=== PATIENT | male | born 1965 | race Caucasian/White ===

== ENCOUNTER 2021-03-17 12:18 | Emergency (ER) | payer OTHER ==
--- NOTE | 2021-03-17 13:51 | EDM.PDOC ---
ED HPI GENERAL MEDICAL PROBLEM - General Chief Complaint: Respiratory Problem Stated Complaint: COVID POSITIVE Time Seen by Provider: 03/17/21 13:59 Source of Information: Reports: Patient History Limitations: Reports: No Limitations - History of Present Illness INITIAL COMMENTS - FREE TEXT/NARRATIVE: pt has had increased sob in the last 2 days. He was diagnosed with covid about 1 week ago, He has been coughing alot. He also has noted alot of heartburn For the last 4 days he has had very black tarry looking stools. Onset: Gradual Duration: Day(s): Location: Reports: Chest, Abdomen, Generalized Associated Symptoms: Reports: Loss of Appetite, Shortness of Breath - Related Data Allergies Allergy/AdvReac Type Severity Reaction Status Date / Time No Known Allergies Allergy Verified 03/17/21 12:40 Home Meds: Home Meds NK [No Known Home Meds] 03/17/21 [History] Past Medical History HEENT History: Reports: Impaired Vision - Infectious Disease History Infectious Disease History: Reports: Chicken Pox - Past Surgical History GI Surgical History: Reports: Hernia Repair/Other Social & Family History - Tobacco Use Tobacco Use Status *Q: Never Tobacco User - Caffeine Use Caffeine Use: Reports: Coffee, Tea - Recreational Drug Use Recreational Drug Use: No ED ROS GENERAL - Review of Systems Review Of Systems: See Below Constitutional: Reports: Weakness, Fatigue HEENT: Reports: No Symptoms Respiratory: Reports: Shortness of Breath, Cough Cardiovascular: Reports: No Symptoms Endocrine: Reports: No Symptoms GI/Abdominal: Reports: Abdominal Pain, Other (heartburn type symptoms) : Reports: No Symptoms Musculoskeletal: Reports: No Symptoms Skin: Reports: No Symptoms ED EXAM, GENERAL - Physical Exam Exam: See Below Free Text/Narrative:: pt arrived with increased sob. he has been coughing alot. He has known covid for 1 week. He also has noted black tary stools for 4-5 days. Exam Limited By: No Limitations General Appearance: Alert, Anxious, Other ( very sob with activit ) Ears: Normal TMs Nose: Normal Inspection Throat/Mouth: Normal Inspection Head: Atraumatic Neck: Normal Inspection Respiratory/Chest: Decreased Breath Sounds, Rhonchi Cardiovascular: Regular Rate, Rhythm GI/Abdominal: Soft, Non-Tender (Male) Exam: Deferred Rectal (Males) Exam: Other ( rectal exam revealed no masses but the stool appeared very dark and bloody. ) Back Exam: Normal Inspection Extremities: Normal Inspection Neurological: Alert, Oriented, Normal Cognition Course - Vital Signs Last Recorded V/S: Last Vital Signs Temp 36.5 C 03/17/21 12:34 Pulse 59 L 03/17/21 12:34 Resp 16 03/17/21 12:34 BP 139/88 03/17/21 18:58 Pulse Ox 96 03/17/21 18:58 - Orders/Labs/Meds Orders: Active Orders 24 hr Category Date Time Status Saline Lock Insert [OM.PC] Routine Oth 03/17/21 13:58 Ordered Labs: Laboratory Tests 03/17/21 03/17/21 03/17/21 Range/Units 14:12 14:12 16:35 WBC 4.4 L (4.5-11.0) K/uL RBC 4.20 L (4.30-5.90) M/uL Hgb 12.7 (12.0-15.0) g/dL Hct 36.5 L (40.0-54.0) % MCV 87 (80-98) fL MCH 30 (27-31) pg MCHC 35 (32-36) % Plt Count 168 (150-400) K/uL Neut % (Auto) 78 H (36-66) % Lymph % (Auto) 14 L (24-44) % [place] % (Auto) 8 H (2-6) % Eos % (Auto) 0 L (2-4) % Baso % (Auto) 0 (0-1) % PT 9.9 (9.5-12.0) sec INR 0.91 (0.80-1.20) Sodium 133 L (140-148) mmol/L Potassium 3.3 L (3.6-5.2) mmol/L Chloride 93 L (100-108) mmol/L Carbon Dioxide 33 H (21-32) mmol/L Anion Gap 10.3 (5.0-14.0) mmol/L BUN 15 (7-18) mg/dL Creatinine 0.9 (0.8-1.3) mg/dL Est Cr Clr Drug Dosing 73.76 mL/min Estimated GFR (MDRD) > 60 (>60) Glucose 116 H (74-106) mg/dL Calcium 8.0 L (8.5-10.1) mg/dL Total Bilirubin 0.5 (0.2-1.0) mg/dL AST 145 H (15-37) U/L ALT 127 H (12-78) U/L Alkaline Phosphatase 82 (46-116) U/L Total Protein 6.5 (6.4-8.2) g/dL Albumin 2.6 L (3.4-5.0) g/dL Globulin 3.9 H (2.3-3.5) g/dL Albumin/Globulin Ratio 0.7 L (1.2-2.2) Blood Type Gel Antibody Screen 03/17/21 Range/Units 16:35 WBC (4.5-11.0) K/uL RBC (4.30-5.90) M/uL Hgb (12.0-15.0) g/dL Hct (40.0-54.0) % MCV (80-98) fL MCH (27-31) pg MCHC (32-36) % Plt Count (150-400) K/uL Neut % (Auto) (36-66) % Lymph % (Auto) (24-44) % Cory[place] % (Auto) (2-6) % Eos % (Auto) (2-4) % Baso % (Auto) (0-1) % PT (9.5-12.0) sec INR (0.80-1.20) Sodium (140-148) mmol/L Potassium (3.6-5.2) mmol/L Chloride (100-108) mmol/L Carbon Dioxide (21-32) mmol/L Anion Gap (5.0-14.0) mmol/L BUN (7-18) mg/dL Creatinine (0.8-1.3) mg/dL Est Cr Clr Drug Dosing mL/min Estimated GFR (MDRD) (>60) Glucose (74-106) mg/dL Calcium (8.5-10.1) mg/dL Total Bilirubin (0.2-1.0) mg/dL AST (15-37) U/L ALT (12-78) U/L Alkaline Phosphatase (46-116) U/L Total Protein (6.4-8.2) g/dL Albumin (3.4-5.0) g/dL Globulin (2.3-3.5) g/dL Albumin/Globulin Ratio (1.2-2.2) Blood Type A POSITIVE Gel Antibody Screen Negative Meds: Medications Discontinued Medications Generic Name Dose Route Start Last Admin Trade Name Laureano PRN Reason Stop Dose Admin Sodium Chloride 1,000 mls @ 300 mls/hr 03/17/21 16:00 03/17/21 16:00 Normal Saline IV 300 mls/hr ASDIRECTED ALDEN Administration Pantoprazole Sodium 80 mg 03/17/21 14:00 03/17/21 14:40 Pantoprazole 40 Mg Vial IVPUSH 80 mg .BOLUS ALDEN Administration Sodium Chloride 10 ml 03/17/21 13:58 03/17/21 14:40 Sodium Chloride 0.9% 10 Ml Syringe FLUSH 10 ml ASDIRECTED PRN Administration Keep Vein Open - Re-Assessments/Exams Free Text/Narrative Re-Assessment/Exam: 03/17/21 16:41 pt did have o2 sats in the 86-87 range. pt responding to o2 at 2 liters. His stool did look very bloody. His hg is good [facility] 13. [facility] because of the [facility] bleed they are not willing to take him 03/17/21 17:38 Inr was done and found to be .91 nd type and screen is completed. There is no antibodies. Departure - Departure Time of Disposition: 16:44 Disposition: DC/Tfer to Acute Hospital 02 Condition: Fair Clinical Impression: Upper GI bleeding, COVID-19, Bilateral pneumonia - Discharge Information Referrals: PCP,None [Primary Care Provider] - Forms: ED Department Discharge Care Plan Goals: transfer to [facility]. Sepsis Event Note (ED) - Evaluation Sepsis Screening Result: No Definite Risk - My Orders Last 24 Hours: My Active Orders 03/17/21 13:58 Saline Lock Insert [OM.PC] Routine - Assessment/Plan Last 24 Hours: My Active Orders 03/17/21 13:58 Saline Lock Insert [OM.PC] Routine
[2021-03-17] MEDS ORDERED: Sodium Chloride 0.9% 10 ML Syringe FLUSH PRN (13:58)
[2021-03-17] MEDS ORDERED: Pantoprazole 40 MG Vial IVPUSH SCH (14:00)
--- NOTE | 2021-03-17 15:14 | CRLCR ---
INDICATION: [id number], COVID positive. TECHNIQUE: Chest 1 view. COMPARISON: None. FINDINGS: There are patchy opacities within the right mid and lower lung and left lower lung suspicious for pneumonia. No pleural effusion or pneumothorax. Normal heart size and pulmonary vascularity. Mild elevation of the right hemidiaphragm. Hypertrophic changes of the spine. IMPRESSION: Patchy opacities in the right mid and lower lung and left lower lung suspicious for pneumonia. Dictated by Chasity Vo MD @ 03/17/2021 3:12:[address] Chasity Vo @ Mar 17 2021 3:12PM
[2021-03-17] MEDS ORDERED: Sodium Chloride 0.9% 1,000 ML IV SCH (16:00)
== END 2021-03-17 19:00 ==
LOC: JP.ED 12:18
DX: U07.1 COVID-19 (principal); J12.82 Pneumonia due to coronavirus disease 2019; K92.2 Gastrointestinal hemorrhage, unspecified
CPT/HCPCS: 36415; 71045; 80053; 82272; 85025; 85610; 86850; 86900; 86901; 96374; 99285; 99285-25; C9113; J7030

== ENCOUNTER 2021-03-26 13:16 | Inpatient (IN) | payer OTHER ==
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
[2021-03-26] MEDS ORDERED: OLANZapine 10 MG Vial IM ONE (13:51)
--- NOTE | 2021-03-26 14:33 | CT ---
Head wo Cont CLINICAL HISTORY: AMS COMPARISON: None TECHNIQUE: Transverse scans were obtained from the base of the skull through the vertex without IV contrast on a multislice, multidetector CT scanner. Auto dosage reduction and iterative reconstruction techniques employed. FINDINGS: No focal abnormal parenchymal density is identified. There is no mass effect, hemorrhage, or extraaxial collection. The basal cisterns and sulci over the convexities are normal. The ventricles are normal. IMPRESSION: No acute intracranial findings
[2021-03-26] MEDS ORDERED: cefTRIAXone 1 GM in Sodium Chloride 0.9% 50 ML IV ONE (14:45)
[2021-03-26] MEDS ORDERED: Sodium Chloride 0.9% 10 ML Syringe FLUSH PRN ×2 (14:46→17:31)
[2021-03-26] MEDS ORDERED: Sodium Chloride 0.9% 1,000 ML IV SCH (15:00)
[2021-03-26] MEDS ORDERED: Midazolam 1 MG/ML 5 ML SDV IVPUSH ONE (15:27)
[2021-03-26] MEDS ORDERED: Midazolam 1 MG/ML 5 ML SDV ONE (15:29)
--- NOTE | 2021-03-26 16:53 | PCM.HP.2 ---
H&P History of Present Illness - General Date of Service: 03/26/21 Admit Problem/Dx: Admission Diagnosis/Problem Admission Diagnosis/Problem Psychosis Source of Information: Provider, RN Notes Reviewed History Limitations: Reports: Altered Mental Status (Psychosis) - History of Present Illness Initial Comments - Free Text/Narative: Mr. Lara is a 55-year-old gentleman who was admitted through the emergency department with psychosis and urinary tract infection. He was hospitalized last week in [place] with active COVID-19 infection. He was treated with remdesivir and Decadron. Discharge was approximately 5 days ago on oral Decadron. After discharge she was noted to be agitated and somewhat confused, Decadron was discontinued 2 days ago because of his symptoms. He was brought into the emergency department today because of significant agitation and confusion. He has been agitated in the emergency department and has received IM Zyprexa and ketamine. He is currently sedated and restrained, unable to provide meaningful history concerning recent symptoms or review of systems. On evaluation in the emergency department CT scan of the head was unremarkable. Urinalysis does show evidence of underlying infection. Blood culture, urine culture have been obtain ed and he is given a first dose of IV ceftriaxone. - Related Data Allergies/Adverse Reactions: Allergies Allergy/AdvReac Type Severity Reaction Status Date / Time No Known Allergies Allergy Verified 03/26/21 13:26 Home Medications: Home Meds Pantoprazole Sodium [Protonix] 40 mg PO BID 03/26/21 [History] Past Medical History HEENT History: Reports: Impaired Vision Respiratory History: Reports: Other (See Below) Other Respiratory History: Covid - Infectious Disease History Infectious Disease History: Reports: Chicken Pox, Other (See Below) - Past Surgical History GI Surgical History: Reports: Hernia Repair/Other Social & Family History - Tobacco Use Tobacco Use Status *Q: Unknown Ever Used Tobacco - Caffeine Use Caffeine Use: Reports: Other Caffeine Use Comment: ESPERANZA d/t pt's cognitive function H&P Review of Systems - Review of Systems: Review Of Systems: See Below General: Reports: ROS unobtainable (Sedation and lethargy) Exam - Exam Exam: See Below - Vital Signs Vital Signs: Last Vital Signs Temp 98.1 F 03/26/21 15:43 Pulse 62 03/26/21 16:03 Resp 14 03/26/21 16:03 BP 98/53 L 03/26/21 16:03 Pulse Ox 98 03/26/21 16:03 Weight: 160 lb - Exam Quality Assessment: DVT Prophylaxis General: Sedated, Lethargic HEENT: Conjunctiva Clear, Mucosa Moist & [place], Normal Nasal Septum, Posterior Pharynx Clear, Pupils Equal Neck: Supple, Trachea Midline, +2 Carotid Pulse wo Bruit Lungs: Clear to Auscultation, Normal Respiratory Effort Cardiovascular: Regular Rate, Regular Rhythm, Normal S1, Normal S2. No: Systolic Murmur, Diastolic Murmur GI/Abdominal Exam: Soft, Non-Tender, No Organomegaly, No Distention Extremities: Non-Tender, No Pedal Edema Skin: Warm, Dry, Intact Neuro Extensive - Mental Status: Other (Significant agitation and confusion prior to sedation) - Patient Data Lab Results Last 24 hrs: Laboratory Results - last 24 hr 03/26/21 03/26/21 03/26/21 Range/Units 13:32 13:32 13:32 WBC 10.9 (4.5-11.0) K/uL RBC 4.43 (4.30-5.90) M/uL Hgb 13.3 (12.0-15.0) g/dL Hct 39.2 L (40.0-54.0) % MCV 89 (80-98) fL MCH 30 (27-31) pg MCHC 34 (32-36) % Plt Count 306 (150-400) K/uL Neut % (Auto) 84.7 H (36-66) % Lymph % (Auto) 6.3 L (24-44) % [place] % (Auto) 8.8 H (2-6) % Eos % (Auto) 0.0 L (2-4) % Baso % (Auto) 0.2 (0-1) % PT 10.8 (9.5-12.0) sec INR 0.99 (0.80-1.20) Sodium 141 (140-148) mmol/L Potassium 3.3 L (3.6-5.2) mmol/L Chloride 100 (100-108) mmol/L Carbon Dioxide 23 (21-32) mmol/L Anion Gap 21.3 H (5.0-14.0) mmol/L BUN 18 (7-18) mg/dL Creatinine 1.1 (0.8-1.3) mg/dL Est Cr Clr Drug Dosing 60.35 mL/min Estimated GFR (MDRD) > 60 (>60) Glucose 201 H (74-106) mg/dL Lactic Acid (0.4-2.0) mmol/L Calcium 8.4 L (8.5-10.1) mg/dL Total Bilirubin 0.8 D (0.2-1.0) mg/dL AST 24 D (15-37) U/L ALT 82 H (12-78) U/L Alkaline Phosphatase 91 (46-116) U/L Ammonia (11-32) umol/L Total Protein 6.7 (6.4-8.2) g/dL Albumin 3.0 L (3.4-5.0) g/dL Globulin 3.7 H (2.3-3.5) g/dL Albumin/Globulin Ratio 0.8 L (1.2-2.2) Procalcitonin ng/mL Urine Color (YELLOW) Urine Appearance (CLEAR) Urine pH (5.0-8.0) Ur Specific [place] (1.008-1.030) Urine Protein (NEGATIVE) mg/dL Urine Glucose (UA) (NEGATIVE) mg/dL Urine Ketones (NEGATIVE) mg/dL Urine Occult Blood (NEGATIVE) Urine Nitrite (NEGATIVE) Urine Bilirubin (NEGATIVE) Urine Urobilinogen (0.2-1.0) EU/dL Ur Leukocyte Esterase (NEGATIVE) Urine RBC (0-5) Urine WBC (0-5) Ur Epithelial Cells Amorphous Sediment Urine Bacteria Urine Mucus Salicylates (2.0-20.0) mg/dL Urine Opiates Screen (NEGATIVE) Ur Oxycodone Screen (NEGATIVE) Urine Methadone Screen (NEGATIVE) Ur Propoxyphene Screen (NEGATIVE) Acetaminophen (10.0-30.0) ug/mL Ur Barbiturates Screen (NEGATIVE) Ur Tricyclics Screen (NEGATIVE) Ur Phencyclidine Scrn (NEGATIVE) Ur Amphetamine Screen (NEGATIVE) U Methamphetamines Scrn (NEGATIVE) Urine MDMA Screen (NEGATIVE) U Benzodiazepines Scrn (NEGATIVE) U Cocaine Metab Screen (NEGATIVE) U Marijuana (THC) Screen (NEGATIVE) Ethyl Alcohol mg/dL 03/26/21 03/26/21 03/26/21 Range/Units 13:32 13:32 13:46 WBC (4.5-11.0) K/uL RBC (4.30-5.90) M/uL Hgb (12.0-15.0) g/dL Hct (40.0-54.0) % MCV (80-98) fL MCH (27-31) pg MCHC (32-36) % Plt Count (150-400) K/uL Neut % (Auto) (36-66) % Lymph % (Auto) (24-44) % Boyle % (Auto) (2-6) % Eos % (Auto) (2-4) % Baso % (Auto) (0-1) % PT (9.5-12.0) sec INR (0.80-1.20) Sodium (140-148) mmol/L Potassium (3.6-5.2) mmol/L Chloride (100-108) mmol/L Carbon Dioxide (21-32) mmol/L Anion Gap (5.0-14.0) mmol/L BUN (7-18) mg/dL Creatinine (0.8-1.3) mg/dL Est Cr Clr Drug Dosing mL/min Estimated GFR (MDRD) (>60) Glucose (74-106) mg/dL Lactic Acid (0.4-2.0) mmol/L Calcium (8.5-10.1) mg/dL Total Bilirubin (0.2-1.0) mg/dL AST (15-37) U/L ALT (12-78) U/L Alkaline Phosphatase (46-116) U/L Ammonia 9 L (11-32) umol/L Total Protein (6.4-8.2) g/dL Albumin (3.4-5.0) g/dL Globulin (2.3-3.5) g/dL Albumin/Globulin Ratio (1.2-2.2) Procalcitonin ng/mL Urine Color Yellow (YELLOW) Urine Appearance Clear (CLEAR) Urine pH 6.0 (5.0-8.0) Ur Specific [place] >= 1.030 (1.008-1.030) Urine Protein 30 H (NEGATIVE) mg/dL Urine Glucose (UA) Negative (NEGATIVE) mg/dL Urine Ketones 15 H (NEGATIVE) mg/dL Urine Occult Blood Trace-intact H (NEGATIVE) Urine Nitrite Negative (NEGATIVE) Urine Bilirubin Negative (NEGATIVE) Urine Urobilinogen 0.2 (0.2-1.0) EU/dL Ur Leukocyte Esterase Small H (NEGATIVE) Urine RBC 5-10 H (0-5) Urine WBC Packed H (0-5) Ur Epithelial Cells Rare Amorphous Sediment Few Urine Bacteria Moderate Urine Mucus Few Salicylates (2.0-20.0) mg/dL Urine Opiates Screen (NEGATIVE) Ur Oxycodone Screen (NEGATIVE) Urine Methadone Screen (NEGATIVE) Ur Propoxyphene Screen (NEGATIVE) Acetaminophen (10.0-30.0) ug/mL Ur Barbiturates Screen (NEGATIVE) Ur Tricyclics Screen (NEGATIVE) Ur Phencyclidine Scrn (NEGATIVE) Ur Amphetamine Screen (NEGATIVE) U Methamphetamines Scrn (NEGATIVE) Urine MDMA Screen (NEGATIVE) U Benzodiazepines Scrn (NEGATIVE) U Cocaine Metab Screen (NEGATIVE) U Marijuana (THC) Screen (NEGATIVE) Ethyl Alcohol < 3 mg/dL 03/26/21 03/26/21 03/26/21 Range/Units 13:46 13:54 13:54 WBC (4.5-11.0) K/uL RBC (4.30-5.90) M/uL Hgb (12.0-15.0) g/dL Hct (40.0-54.0) % MCV (80-98) fL MCH (27-31) pg MCHC (32-36) % Plt Count (150-400) K/uL Neut % (Auto) (36-66) % Lymph % (Auto) (24-44) % Boyle % (Auto) (2-6) % Eos % (Auto) (2-4) % Baso % (Auto) (0-1) % PT (9.5-12.0) sec INR (0.80-1.20) Sodium (140-148) mmol/L Potassium (3.6-5.2) mmol/L Chloride (100-108) mmol/L Carbon Dioxide (21-32) mmol/L Anion Gap (5.0-14.0) mmol/L BUN (7-18) mg/dL Creatinine (0.8-1.3) mg/dL Est Cr Clr Drug Dosing mL/min Estimated GFR (MDRD) (>60) Glucose (74-106) mg/dL Lactic Acid (0.4-2.0) mmol/L Calcium (8.5-10.1) mg/dL Total Bilirubin (0.2-1.0) mg/dL AST (15-37) U/L ALT (12-78) U/L Alkaline Phosphatase (46-116) U/L Ammonia (11-32) umol/L Total Protein (6.4-8.2) g/dL Albumin (3.4-5.0) g/dL Globulin (2.3-3.5) g/dL Albumin/Globulin Ratio (1.2-2.2) Procalcitonin ng/mL Urine Color (YELLOW) Urine Appearance (CLEAR) Urine pH (5.0-8.0) Ur Specific [place] (1.008-1.030) Urine Protein (NEGATIVE) mg/dL Urine Glucose (UA) (NEGATIVE) mg/dL Urine Ketones (NEGATIVE) mg/dL Urine Occult Blood (NEGATIVE) Urine Nitrite (NEGATIVE) Urine Bilirubin (NEGATIVE) Urine Urobilinogen (0.2-1.0) EU/dL Ur Leukocyte Esterase (NEGATIVE) Urine RBC (0-5) Urine WBC (0-5) Ur Epithelial Cells Amorphous Sediment Urine Bacteria Urine Mucus Salicylates 0.3 L (2.0-20.0) mg/dL Urine Opiates Screen Negative (NEGATIVE) Ur Oxycodone Screen Negative (NEGATIVE) Urine Methadone Screen Negative (NEGATIVE) Ur Propoxyphene Screen Negative (NEGATIVE) Acetaminophen 0.0 L (10.0-30.0) ug/mL Ur Barbiturates Screen Negative (NEGATIVE) Ur Tricyclics Screen Negative (NEGATIVE) Ur Phencyclidine Scrn Negative (NEGATIVE) Ur Amphetamine Screen Negative (NEGATIVE) U Methamphetamines Scrn Negative (NEGATIVE) Urine MDMA Screen Negative (NEGATIVE) U Benzodiazepines Scrn Negative (NEGATIVE) U Cocaine Metab Screen Negative (NEGATIVE) U Marijuana (THC) Screen Negative (NEGATIVE) Ethyl Alcohol mg/dL 03/26/21 03/26/21 Range/Units 13:56 14:00 WBC (4.5-11.0) K/uL RBC (4.30-5.90) M/uL Hgb (12.0-15.0) g/dL Hct (40.0-54.0) % MCV (80-98) fL MCH (27-31) pg MCHC (32-36) % Plt Count (150-400) K/uL Neut % (Auto) (36-66) % Lymph % (Auto) (24-44) % Boy[place] % (Auto) (2-6) % Eos % (Auto) (2-4) % Baso % (Auto) (0-1) % PT (9.5-12.0) sec INR (0.80-1.20) Sodium (140-148) mmol/L Potassium (3.6-5.2) mmol/L Chloride (100-108) mmol/L Carbon Dioxide (21-32) mmol/L Anion Gap (5.0-14.0) mmol/L BUN (7-18) mg/dL Creatinine (0.8-1.3) mg/dL Est Cr Clr Drug Dosing mL/min Estimated GFR (MDRD) (>60) Glucose (74-106) mg/dL Lactic Acid 3.4 H (0.4-2.0) mmol/L Calcium (8.5-10.1) mg/dL Total Bilirubin (0.2-1.0) mg/dL AST (15-37) U/L ALT (12-78) U/L Alkaline Phosphatase (46-116) U/L Ammonia (11-32) umol/L Total Protein (6.4-8.2) g/dL Albumin (3.4-5.0) g/dL Globulin (2.3-3.5) g/dL Albumin/Globulin Ratio (1.2-2.2) Procalcitonin < 0.05 ng/mL Urine Color (YELLOW) Urine Appearance (CLEAR) Urine pH (5.0-8.0) Ur Specific [place] (1.008-1.030) Urine Protein (NEGATIVE) mg/dL Urine Glucose (UA) (NEGATIVE) mg/dL Urine Ketones (NEGATIVE) mg/dL Urine Occult Blood (NEGATIVE) Urine Nitrite (NEGATIVE) Urine Bilirubin (NEGATIVE) Urine Urobilinogen (0.2-1.0) EU/dL Ur Leukocyte Esterase (NEGATIVE) Urine RBC (0-5) Urine WBC (0-5) Ur Epithelial Cells Amorphous Sediment Urine Bacteria Urine Mucus Salicylates (2.0-20.0) mg/dL Urine Opiates Screen (NEGATIVE) Ur Oxycodone Screen (NEGATIVE) Urine Methadone Screen (NEGATIVE) Ur Propoxyphene Screen (NEGATIVE) Acetaminophen (10.0-30.0) ug/mL Ur Barbiturates Screen (NEGATIVE) Ur Tricyclics Screen (NEGATIVE) Ur Phencyclidine Scrn (NEGATIVE) Ur Amphetamine Screen (NEGATIVE) U Methamphetamines Scrn (NEGATIVE) Urine MDMA Screen (NEGATIVE) U Benzodiazepines Scrn (NEGATIVE) U Cocaine Metab Screen (NEGATIVE) U Marijuana (THC) Screen (NEGATIVE) Ethyl Alcohol mg/dL Result Diagrams: 03/26/21 13:32 03/26/21 13:32 Sepsis Event Note - Evaluation Sepsis Screening Result: Possible Severe Sepsis Risk - Focused Exam Vital Signs: Vital Signs Temp Pulse Resp BP Pulse Ox 03/26/21 16:03 62 14 98/53 L 98 03/26/21 15:43 98.1 F 20 100/58 L 99 03/26/21 15:33 105/63 03/26/21 15:27 141/66 H 03/26/21 15:22 64 14 120/76 98 03/26/21 14:56 19 112/70 98 03/26/21 14:42 16 104/55 L 98 03/26/21 14:26 159/88 H 03/26/21 14:00 20 149/86 H 90 L 03/26/21 13:19 97.8 F 102 H 24 H 184/96 H 95 *Q Meaningful Use (ADM) - VTE Risk Assess *Q Each Risk Factor Represents 1 Point: Age 41 - 59 years, Obesity ( BMI > 25 kg/m2) Total Score 1 Point Risk Factors: 2 Each Risk Factor Represents 2 Points: None Total Score 2 Point Risk Factors: 0 Each Risk Factor Represents 3 Points: None Total Score 3 Point Risk Factors: 0 Each Risk Factor Represents 5 Points: None Total Score 5 Point Risk Factors: 0 Venous Thromboembolism Risk Factor Score *Q: 2 Problem List Initiated/Reviewed/Updated: Yes Orders Last 24hrs: Active Orders 24 hr Category Date Time Status Patient Status Manage Transfer [TRANSFER] Routine ADT 03/26/21 16:46 Ordered Initiate/Renew Violent-Self Destructive Restraints >/= Care 03/26/21 13:30 Ordered 17yo Q4H Nrsg Assess: Viol-S.Dest Rest [RC] Q1H Care 03/26/21 13:22 Active Peripheral IV Care [RC] . DIRECTED Care 03/26/21 14:46 Active CULTURE BLOOD [] Urgent Lab 03/26/21 15:05 Received CULTURE BLOOD [BC] Urgent Lab 03/26/21 15:15 Received CULTURE URINE [RM] Urgent Lab 03/26/21 15:23 Received Sodium Chloride 0.9% [Normal Saline] 1,000 ml Med 03/26/21 15:00 Active IV ASDIRECTED Sodium Chloride 0.9% [Saline Flush] Med 03/26/21 14:46 Active 10 ml FLUSH ASDIRECTED PRN Blood Culture x2 Reflex Set [OM.PC] Urgent Oth 03/26/21 14:55 Ordered Peripheral IV Insertion Adult [OM.PC] Urgent Oth 03/26/21 14:45 Ordered Resuscitation Status Routine Resus Stat 03/26/21 16:48 Ordered Medication Orders Sodium Chloride (Normal Saline) 1,000 mls @ 500 mls/hr IV ASDIRECTED ALDEN Last Admin: 03/26/21 15:12 Dose: 500 mls/hr Documented by: ZAID Sodium Chloride (Sodium Chloride 0.9% 10 Ml Syringe) 10 ml FLUSH ASDIRECTED PRN PRN Reason: Keep Vein Open Last Admin: 03/26/21 15:23 Dose: 10 ml Documented by: ZAID Assessment/Plan Comment:: ASSESSMENT AND PLAN AGITATION AND CONFUSION-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 Recent therapy with Decadron and its relatively long half-life. No evidence of active PRACTICE ADVISOR infection at this time or other PRACTICE ADVISOR abnormality. He has been found to have evidence of urinary tract infection which may also be a contributing factor. -Monitor in ICU -Haldol IV as needed for management of agitation -Reassess labs in a.m. URINARY TRACT INFECTION-obvious evidence of infection noted on urinalysis -Urine and blood cultures pending -IV fluids for hydration -IV ceftriaxone, pending culture results RECENT COVID-19 INFECTION-no evidence of significant respiratory compromise MAINTENANCE ISSUES -DVT prophylaxis; SCUDs -GI prophylaxis; continue outpatient PPI therapy -Galeano catheter; not indicated -Nutrition; regular diet -Nicotine dependence; not required CODE STATUS-FULL CODE ADMISSION STATUS-patient will be admitted to inpatient status, expect at least a 2 night hospital stay for evaluation and management of problems as outlined above. At the time of this admission I do not reasonably expected evaluation and management of this problem will require more than a 96 hour hospital stay. DISPOSITION-anticipate discharge to home after the hospital stay. PRIMARY CARE PROVIDER-Chasity Camejo - Mortality Measure Prognosis:: Good
[2021-03-26] MEDS ORDERED: Ondansetron 4 MG/2 ML SDV IV PRN (17:31)
[2021-03-26] MEDS ORDERED: Polyethylene Glycol 3350 Powder 17 GM Packet PO PRN (17:31)
[2021-03-26] MEDS ORDERED: Acetaminophen 325 MG Tab PO PRN (17:31)
[2021-03-26] MEDS ORDERED: Haloperidol Lactate 5 MG/ML SDV IVPUSH PRN (17:31)
[2021-03-26] MEDS: Sodium Chloride 0.9% 1,000 ML IV SCH (18:03)
[2021-03-26] MEDS ORDERED: Sodium Chloride 0.9% 500 ML IV ONE (22:05)
[2021-03-26] MEDS: Pantoprazole 40 MG Tab.CR PO SCH (22:14)
[2021-03-27] MEDS ORDERED: Sodium Chloride 0.9% 500 ML IV ONE (02:40)
[2021-03-27] MEDS: Sodium Chloride 0.9% 1,000 ML IV SCH (03:10)
[2021-03-27] MEDS: Pantoprazole 40 MG Tab.CR PO SCH ×2 (08:10→17:18)
[2021-03-27] MEDS ORDERED: cefTRIAXone 1 GM in Sodium Chloride 0.9% 50 ML IV SCH (15:00)
--- NOTE | 2021-03-27 15:55 | PCM.PN ---
- General Info Date of Service: 03/27/21 Subjective Update: Mr. Lara has been fairly stable since admission, confusion and agitation have essentially resolved. Vital signs have been good and he has remained afebrile. Functional Status: Reports: Tolerating Diet, Ambulating, Urinating - Review of Systems General: Reports: No Symptoms Pulmonary: Reports: No Symptoms Cardiovascular: Reports: No Symptoms Gastrointestinal: Reports: No Symptoms Genitourinary: Reports: No Symptoms - Patient Data Vitals - Most Recent: Last Vital Signs Temp 98.4 F 03/27/21 14:00 Pulse 66 03/27/21 14:00 Resp 11 L 03/27/21 14:00 BP 96/56 L 03/27/21 14:00 Pulse Ox 96 03/27/21 14:00 Weight - Most Recent: 155 lb 15.985 oz I&O - Last 24 Hours: Intake & Output 03/27/21 03/27/21 03/27/21 06:59 14:59 22:59 Intake Total 2292 900 Output Total 700 950 Balance 1592 -50 Lab Results Last 24 Hours: Laboratory Results - last 24 hr 03/27/21 03/27/21 Range/Units 05:28 05:28 WBC 9.6 (4.5-11.0) K/uL RBC 3.62 L (4.30-5.90) M/uL Hgb 10.8 L D (12.0-15.0) g/dL Hct 33.1 L (40.0-54.0) % MCV 91 (80-98) fL MCH 30 (27-31) pg MCHC 33 (32-36) % Plt Count 220 (150-400) K/uL Neut % (Auto) 76.6 H (36-66) % Lymph % (Auto) 12.1 L (24-44) % [place] % (Auto) 11.3 H (2-6) % Eos % (Auto) 0.0 L (2-4) % Baso % (Auto) 0.0 (0-1) % Sodium 146 (140-148) mmol/L Potassium 3.8 (3.6-5.2) mmol/L Chloride 113 H (100-108) mmol/L Carbon Dioxide 26 (21-32) mmol/L Anion Gap 10.8 (5.0-14.0) mmol/L BUN 9 (7-18) mg/dL Creatinine 0.9 (0.8-1.3) mg/dL Est Cr Clr Drug Dosing 73.74 mL/min Estimated GFR (MDRD) > 60 (>60) Glucose 96 (74-106) mg/dL Calcium 7.4 L (8.5-10.1) mg/dL Ethan Results Last 24 Hours: Microbiology 03/26/21 15:15 Aerobic Blood Culture - Preliminary Blood - Arm, Right NO GROWTH AFTER 1 DAY Anaerobic Blood Culture - Preliminary NO GROWTH AFTER 1 DAY 03/26/21 15:05 Aerobic Blood Culture - Preliminary Blood - Arm, Left NO GROWTH AFTER 1 DAY Anaerobic Blood Culture - Preliminary NO GROWTH AFTER 1 DAY 03/26/21 15:23 Urine Culture - Preliminary Urine, Catheterized Med Orders - Current: Current Medications Acetaminophen (Acetaminophen 325 Mg Tab) 650 mg PO Q4H PRN PRN Reason: Pain (Mild 1-3)/fever Haloperidol Lactate (Haloperidol Lactate 5 Mg/Ml Sdv) 2 mg IVPUSH Q2H PRN PRN Reason: Agitation Last Admin: 03/26/21 19:38 Dose: 2 mg Documented by: Ceftriaxone Sodium 1 gm/ (Sodium Chloride) 50 mls @ 100 mls/hr IV Q24H AL[place] Last Admin: 03/27/21 15:02 Dose: 100 mls/hr Documented by: Lactobacillus Rhamnosus (Lactobacillus Rhamnosus Gg (Probiotic) Cap) 1 cap PO BID ALDEN Ondansetron HCl (Ondansetron 4 Mg/2 Ml Sdv) 4 mg IV Q4H PRN PRN Reason: Nausea/Vomiting Pantoprazole Sodium (Pantoprazole 40 Mg Tab.Cr) 40 mg PO [facility] Last Admin: 03/27/21 08:10 Dose: 40 mg Documented by: Polyethylene Glycol (Polyethylene Glycol 3350 Powder 17 Gm Packet) 17 gm PO DAILY PRN PRN Reason: Constipation Sodium Chloride (Sodium Chloride 0.9% 10 Ml Syringe) 10 ml FLUSH ASDIRECTED PRN PRN Reason: Keep Vein Open Discontinued Medications Ceftriaxone Sodium 1 gm/ (Sodium Chloride) 50 mls @ 100 mls/hr IV ONETIME ONE Stop: 03/26/21 15:14 Last Admin: 03/26/21 15:19 Dose: 100 mls/hr Documented by: Sodium Chloride (Normal Saline) 1,000 mls @ 500 mls/hr IV ASDIRECTED AL[place] Last Admin: 03/26/21 15:12 Dose: 500 mls/hr Documented by: Sodium Chloride (Normal Saline) 1,000 mls @ 125 mls/hr IV ASDIRECTED [place] Last Admin: 03/27/21 03:10 Dose: 125 mls/hr Documented by: Sodium Chloride (Normal Saline) 500 mls @ 500 mls/hr IV .BOLUS ONE Stop: 03/26/21 23:04 Last Admin: 03/26/21 22:12 Dose: 500 mls/hr Documented by: Sodium Chloride (Normal Saline) 500 mls @ 500 mls/hr IV .BOLUS ONE Stop: 03/27/21 03:39 Last Admin: 03/27/21 02:40 Dose: 500 mls/hr Documented by: Midazolam HCl (Midazolam 1 Mg/Ml 5 Ml Sdv) 5 mg IVPUSH ONETIME ONE Stop: 03/26/21 15:28 Last Admin: 03/26/21 15:32 Dose: 5 mg Documented by: Midazolam HCl (Midazolam 1 Mg/Ml 5 Ml Sdv) Confirm Administered Dose 5 mg .ROUTE .STK-MED ONE Stop: 03/26/21 15:30 Last Admin: 03/26/21 15:32 Dose: Not Given Documented by: Olanzapine (Olanzapine 10 Mg Vial) 10 mg IM ONETIME ONE Stop: 03/26/21 13:52 Last Admin: 03/26/21 14:08 Dose: 10 mg Documented by: Sodium Chloride (Sodium Chloride 0.9% 10 Ml Syringe) 10 ml FLUSH ASDIRECTED PRN PRN Reason: Keep Vein Open Last Admin: 03/26/21 15:23 Dose: 10 ml Documented by: - Exam Quality Assessment: DVT Prophylaxis General: Alert, Oriented, Cooperative, Mild Distress Lungs: Clear to Auscultation, Normal Respiratory Effort Cardiovascular: Regular Rate, Regular Rhythm, No Murmurs GI/Abdominal Exam: Soft, Non-Tender, No Organomegaly, No Distention Extremities: Non-Tender, No Pedal Edema - Patient Data Lab Results Last 24 hrs: Laboratory Results - last 24 hr 03/27/21 03/27/21 Range/Units 05:28 05:28 WBC 9.6 (4.5-11.0) K/uL RBC 3.62 L (4.30-5.90) M/uL Hgb 10.8 L D (12.0-15.0) g/dL Hct 33.1 L (40.0-54.0) % MCV 91 (80-98) fL MCH 30 (27-31) pg MCHC 33 (32-36) % Plt Count 220 (150-400) K/uL Neut % (Auto) 76.6 H (36-66) % Lymph % (Auto) 12.1 L (24-44) % [place] % (Auto) 11.3 H (2-6) % Eos % (Auto) 0.0 L (2-4) % Baso % (Auto) 0.0 (0-1) % Sodium 146 (140-148) mmol/L Potassium 3.8 (3.6-5.2) mmol/L Chloride 113 H (100-108) mmol/L Carbon Dioxide 26 (21-32) mmol/L Anion Gap 10.8 (5.0-14.0) mmol/L BUN 9 (7-18) mg/dL Creatinine 0.9 (0.8-1.3) mg/dL Est Cr Clr Drug Dosing 73.74 mL/min Estimated GFR (MDRD) > 60 (>60) Glucose 96 (74-106) mg/dL Calcium 7.4 L (8.5-10.1) mg/dL Result Diagrams: 03/27/21 05:28 03/27/21 05:28 Ethan Results Last 24 hrs: Microbiology 03/26/21 15:15 Aerobic Blood Culture - Preliminary Blood - Arm, Right NO GROWTH AFTER 1 DAY Anaerobic Blood Culture - Preliminary NO GROWTH AFTER 1 DAY 03/26/21 15:05 Aerobic Blood Culture - Preliminary Blood - Arm, Left NO GROWTH AFTER 1 DAY Anaerobic Blood Culture - Preliminary NO GROWTH AFTER 1 DAY 03/26/21 15:23 Urine Culture - Preliminary Urine, Catheterized Sepsis Event Note - Evaluation Sepsis Screening Result: No Definite Risk - Focused Exam Vital Signs: Vital Signs Temp Pulse Resp BP Pulse Ox 03/27/21 14:00 98.4 F 66 11 L 96/56 L 96 03/27/21 12:00 98.2 F 68 28 H 110/64 94 L 03/27/21 10:10 76 13 118/68 95 03/27/21 09:46 81 18 142/52 H 96 03/27/21 09:00 86 14 95/61 94 L 03/27/21 08:00 57 L 16 86/56 L 95 03/27/21 07:00 98 F 56 L 18 89/59 L 93 L 03/27/21 06:00 19 102/63 94 L 03/27/21 05:00 18 81/52 L 93 L 03/27/21 04:00 13 86/55 L 92 L - Problem List Review Problem List Initiated/Reviewed/Updated: Yes - My Orders Last 24 Hours: My Active Orders 03/26/21 16:48 Resuscitation Status Routine 03/26/21 17:31 Acetaminophen [TylenoL] 650 mg PO Q4H PRN Haloperidol Lactate [Haldol] 2 mg IVPUSH Q2H PRN Ondansetron [Zofran] 4 mg IV Q4H PRN Sodium Chloride 0.9% [Saline Flush] 10 ml FLUSH ASDIRECTED PRN polyethylene glycoL 3350 [MiraLAX] 17 gm PO DAILY PRN 03/26/21 17:31 Patient Status [ADT] Routine Ambulate [RC] QID Cardiac Monitoring [RC] .As Directed Height and Weight [RC] DAILY Intake and Output [RC] QSHIFT Notify Provider Vital Signs [RC] ASDIRECTED Oxygen Therapy [RC] PRN Peripheral IV Care [RC] . 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 Recent therapy with Decadron and its relatively long half-life. No evidence of active FLAME CUTTER infection at this time or other FLAME CUTTER abnormality. He has been found to have evidence of urinary tract infection which may also be a contributing factor. He has significantly improved since admission with no significant agitation or confusion at the present time -Monitor in ICU -Haldol IV as needed for management of agitation URINARY TRACT INFECTION-obvious evidence of infection noted on urinalysis -Urine and blood cultures pending -Saline lock IV -IV ceftriaxone, pending culture results RECENT COVID-19 INFECTION-no evidence of significant respiratory compromise MAINTENANCE ISSUES -DVT prophylaxis; SCUDs -GI prophylaxis; continue outpatient PPI therapy -Galeano catheter; not indicated -Nutrition; regular diet -Nicotine dependence; not required CODE STATUS-FULL CODE ADMISSION STATUS-patient will be admitted to inpatient status, expect at least a 2 night hospital stay for evaluation and management of problems as outlined above. At the time of this admission I do not reasonably expected evaluation and management of this problem will require more than a 96 hour hospital stay. DISPOSITION-anticipate discharge to home after the hospital stay. PRIMARY CARE PROVIDER-Chasity Camejo
[2021-03-27] MEDS: Lactobacillus Rhamnosus GG (Probiotic) Cap PO SCH (21:15)
[2021-03-28] MEDS: Pantoprazole 40 MG Tab.CR PO SCH (08:25)
[2021-03-28] MEDS: Lactobacillus Rhamnosus GG (Probiotic) Cap PO SCH (08:32)
--- NOTE | 2021-03-28 11:08 | PCM.DCSUM1 ---
Discharge Summary - Hospital Course Brief History: Mr. Lara is a 55-year-old gentleman who was admitted through the emergency department for further management of steroid-induced psychosis and urinary tract infection. - Discharge Data Discharge Date: 03/28/21 Discharge Disposition: Home, Self-Care 01 Condition: Fair - Referral to Home Health Primary Care Physician: Chasity Camejo NP - Discharge Diagnosis/Problem(s) (1) COVID-19 SNOMED Code(s): 446473804 ICD Code: U07.1 - COVID-19 Status: Acute Current Visit: No (2) Psychosis SNOMED Code(s): 98477859 ICD Code: F29 - UNSP PSYCHOSIS NOT DUE TO A SUBSTANCE OR KNOWN PHYSIOL COND Status: Acute Current Visit: Yes Qualifiers: Psychosis type: brief psychotic disorder Qualified Code(s): F23 - Brief psychotic disorder (3) Urinary tract infection SNOMED Code(s): 02542095 ICD Code: N39.0 - URINARY TRACT INFECTION, SITE NOT SPECIFIED Status: Acute Current Visit: Yes Qualifiers: Urinary tract infection type: acute cystitis Hematuria presence: with hematuria Qualified Code(s): N30.01 - Acute cystitis with hematuria - Patient Summary/Data Hospital Course: Mr. Lara is a 55-year-old gentleman who was admitted through the emergency department with psychosis and urinary tract infection. He was hospitalized last week in [place] with active COVID-19 infection. He was treated with remdesivir and Decadron. Discharge was approximately 5 days ago on oral Decadron. After discharge he was noted to be agitated and somewhat confused, Decadron was discontinued 2 days ago because of his symptoms. He was brought into the emergency department today because of significant agitation and confusion. He was agitated in the emergency department and received IM Zyprexa and ketamine. He was sedated and restrained, unable to provide meaningful history concerning recent symptoms or review of systems. On evaluation in the emergency department CT scan of the head was unremarkable. Urinalysis showed evidence of underlying infection. Blood culture, urine culture have been obtained and he was given a first dose of IV ceftriaxone. Because of his marked agitation he was admitted to the intensive care unit for more close monitoring. He was treated with a few doses of Haldol after admission to the ICU but by the following day had improved significantly and was no longer agitated or aggressive. By the time of discharge he remained stable with no further evidence of agitation. Urine culture did grow Enterococcus, he was treated with ceftriaxone while in the hospital and will be discharged home with an additional 7 days of oral antibiotic therapy with ampicillin. Activity will be as tolerated and he will resume his usual diet. Follow-up appointment will be scheduled with his primary care provider within 1 week. - Patient Instructions Diet: Usual Diet as Tolerated Activity: As Tolerated Other/Special Instructions: Please schedule follow-up appointment with primary c are provider within 1 week. - Discharge Plan *PRESCRIPTION DRUG MONITORING PROGRAM REVIEWED*: Not Applicable *COPY OF PRESCRIPTION DRUG MONITORING REPORT IN PATIENT ALCIDES: Not Applicable Prescriptions/Med Rec: Ampicillin [Principen] 500 mg PO QID #28 cap Home Medications: Home Meds Pantoprazole Sodium [Protonix] 40 mg PO BID 03/26/21 [History] Ampicillin [Principen] 500 mg PO QID #28 cap 03/28/21 [Rx] Referrals: Chasity Camejo NP [Primary Care Provider] - - Discharge Summary/Plan Comment DC Time >30 min.: No - Patient Data Vitals - Most Recent: Last Vital Signs Temp 98.2 F 03/28/21 04:00 Pulse 75 03/27/21 18:00 Resp 16 03/28/21 06:00 BP 93/57 L 03/28/21 06:00 Pulse Ox 97 03/28/21 06:00 Weight - Most Recent: 155 lb 15.985 oz I&O - Last 24 hours: Intake & Output 03/27/21 03/28/21 03/28/21 22:59 06:59 14:59 Intake Total 2597 Output Total 1375 850 Balance 1222 -850 SERENITY Results - Last 24 hrs: Microbiology 03/26/21 15:23 Urine Culture - Final Urine, Catheterized Enterococcus Faecalis 03/26/21 15:15 Aerobic Blood Culture - Preliminary Blood - Arm, Right NO GROWTH AFTER 1 DAY Anaerobic Blood Culture - Preliminary NO GROWTH AFTER 1 DAY 03/26/21 15:05 Aerobic Blood Culture - Preliminary Blood - Arm, Left NO GROWTH AFTER 1 DAY Anaerobic Blood Culture - Preliminary NO GROWTH AFTER 1 DAY Med Orders - Current: Current Medications Acetaminophen (Acetaminophen 325 Mg Tab) 650 mg PO Q4H PRN PRN Reason: Pain (Mild 1-3)/fever Haloperidol Lactate (Haloperidol Lactate 5 Mg/Ml Sdv) 2 mg IVPUSH Q2H PRN PRN Reason: Agitation Last Admin: 03/26/21 19:38 Dose: 2 mg Documented by: Ceftriaxone Sodium 1 gm/ (Sodium Chloride) 50 mls @ 100 mls/hr IV Q24H [facility] Last Admin: 03/27/21 15:02 Dose: 100 mls/hr Documented by: Lactobacillus Rhamnosus (Lactobacillus Rhamnosus Gg (Probiotic) Cap) 1 cap PO BID [facility] Last Admin: 03/28/21 08:32 Dose: 1 cap Documented by: Ondansetron HCl (Ondansetron 4 Mg/2 Ml Sdv) 4 mg IV Q4H PRN PRN Reason: Nausea/Vomiting Pantoprazole Sodium (Pantoprazole 40 Mg Tab.Cr) [facility] Last Admin: 03/28/21 08:25 Dose: 40 mg Documented by: Polyethylene Glycol (Polyethylene Glycol 3350 Powder 17 Gm Packet) 17 gm PO DAILY PRN PRN Reason: Constipation Sodium Chloride (Sodium Chloride 0.9% 10 Ml Syringe) 10 ml FLUSH ASDIRECTED PRN PRN Reason: Keep Vein Open Discontinued Medications Ceftriaxone Sodium 1 gm/ (Sodium Chloride) 50 mls @ 100 mls/hr IV ONETIME ONE Stop: 03/26/21 15:14 Last Admin: 03/26/21 15:19 Dose: 100 mls/hr Documented by: Sodium Chloride (Normal Saline) 1,000 mls @ 500 mls/hr IV ASDIRECTED [facility] Last Admin: 03/26/21 15:12 Dose: 500 mls/hr Documented by: Sodium Chloride (Normal Saline) 1,000 mls @ 125 mls/hr IV ASDIRECTED [facility] Last Admin: 03/27/21 03:10 Dose: 125 mls/hr Documented by: Sodium Chloride (Normal Saline) 500 mls @ 500 mls/hr IV .BOLUS ONE Stop: 03/26/21 23:04 Last Admin: 03/26/21 22:12 Dose: 500 mls/hr Documented by: Sodium Chloride (Normal Saline) 500 mls @ 500 mls/hr IV .BOLUS ONE Stop: 03/27/21 03:39 Last Admin: 03/27/21 02:40 Dose: 500 mls/hr Documented by: Midazolam HCl (Midazolam 1 Mg/Ml 5 Ml Sdv) 5 mg IVPUSH ONETIME ONE Stop: 03/26/21 15:28 Last Admin: 03/26/21 15:32 Dose: 5 mg Documented by: Midazolam HCl (Midazolam 1 Mg/Ml 5 Ml Sdv) Confirm Administered Dose 5 mg .ROUTE .STK-MED ONE Stop: 03/26/21 15:30 Last Admin: 03/26/21 15:32 Dose: Not Given Documented by: Olanzapine (Olanzapine 10 Mg Vial) 10 mg IM ONETIME ONE Stop: 03/26/21 13:52 Last Admin: 03/26/21 14:08 Dose: 10 mg Documented by: Sodium Chloride (Sodium Chloride 0.9% 10 Ml Syringe) 10 ml FLUSH ASDIRECTED PRN PRN Reason: Keep Vein Open Last Admin: 03/26/21 15:23 Dose: 10 ml Documented by: - Exam General: Reports: Alert, Oriented, Cooperative Lungs: Reports: Clear to Auscultation, Normal Respiratory Effort Cardiovascular: Reports: Regular Rate, Regular Rhythm, No Murmurs GI/Abdominal Exam: Soft, Non-Tender, No Organomegaly, No Distention Extremities: Non-Tender, No Pedal Edema
== END 2021-03-28 15:09 | disposition home or self-care (01) | DRG 885 ==
LOC: JP.ED 13:16 → JP.ICU 16:46
PROVIDERS: ADMIT Hospitalist; ATTEND Hospitalist
DX: F23 Brief psychotic disorder (principal); N30.01 Acute cystitis with hematuria; E87.2 Acidosis; B95.2 Enterococcus as the cause of diseases classified elsewhere; T38.0X5A Adverse effect of glucocorticoids and synthetic analogues, initial encounter; E87.6 Hypokalemia; Z86.16 Personal history of COVID-19
CPT/HCPCS: 36415; 70450; 70450-26; 80048; 80053; 80143; 80179; 80305-QW; 80307; 81001; 82140; 83605; 84145; 85025; 85610; 87040; 87086; 87088; 87186; 96365; 96372; 96375; 99285-25; A9270-GY; J0696; J1630; J2250; J3490; J7030; J7040

== ENCOUNTER 2021-04-04 16:18 | Emergency (ER) | payer OTHER ==
--- NOTE | 2021-04-04 16:28 | EDM.PDOC ---
<Bowen Todd G - Last Filed: 04/04/21 17:54> ED HPI GENERAL MEDICAL PROBLEM - General Chief Complaint: General Stated Complaint: MEDICAL Time Seen by Provider: 04/04/21 16:24 Source of Information: Reports: Patient, EMS, Old Records History Limitations: Reports: No Limitations - History of Present Illness INITIAL COMMENTS - FREE TEXT/NARRATIVE: 55 yo male here via EMS for agitation and combativeness. He received Haldol 5 mg, diphenhydramine 50 mg and Versed 5 mg IM before arrival and is sleeping now. He was here a few days ago for the same thing and was felt to have steroid induced psychosis and a UTI. He spent a couple days in the hospital the last time he was here. Recently was tx'd in [place] for Covid infection which is when he got put on the steroids. Had a head CT scan during his recent admission here that was interpreted as normal. says he had a couple spells witnessed by his elderly mother during which time he stiffened up and "fell on the ground". No post-ictal period. No hx of seizures. Is not a smoker. Has not been sleeping lately. Onset: Today Onset Date: 04/04/21 Duration: Hour(s):, Getting Worse Location: Reports: Generalized Quality: Reports: Other (pain not reported. 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: Other (see below) (See HPI) - Related Data Allergies Allergy/AdvReac Type Severity Reaction Status Date / Time No Known Allergies Allergy Verified 04/04/21 17:15 Home Meds: Home Meds Pantoprazole Sodium [Protonix] 40 mg PO BID 03/26/21 [History] Ampicillin [Principen] 500 mg PO QID #28 cap 03/28/21 [Rx] Past Medical History HEENT History: Reports: Impaired Vision Respiratory History: Reports: Other (See Below) Other Respiratory History: Covid - Infectious Disease History Infectious Disease History: Reports: Chicken Pox, Other (See Below) - Past Surgical History GI Surgical History: Reports: Hernia Repair/Other Social & Family History - Caffeine Use Caffeine Use: Reports: Other Caffeine Use Comment: ESPERANZA d/t pt's cognitive function ED ROS GENERAL - Review of Systems Review Of Systems: Unable To Obtain Reason Not Obtained: sedated and sleeping currently - Physical Exam Exam: See Below Exam Limited By: No Limitations General Appearance: WD/WN, No Apparent Distress, Other (sleeping). No: Alert Eye Exam: Bilateral Eye: Normal Inspection Ears: Normal External Exam, Normal Canal, Hearing Grossly Normal Nose: Normal Inspection, No Blood Throat/Mouth: Normal Inspection, Normal Lips, Normal Oropharynx, Normal Voice, No Airway Compromise. No: Evidence of Tongue Biting Head Exam: Atraumatic, Normocephalic Neck: Normal Inspection Respiratory/Chest: No Respiratory Distress, Lungs Clear, Normal Breath Sounds, No Accessory Muscle Use Cardiovascular: Regular Rate, Rhythm, No Edema GI/Abdominal: Soft, Non-Tender Neuro Exam (Abbreviated): CN II-XII Intact, No Motor/Sensory Deficits, Other (sedated and sleeping). No: Alert, Oriented, Normal Cognition Extremities: Normal Inspection, Normal Range of Motion, Non-Tender, No Pedal Edema Psychiatric: Other (sleeping) Skin Exam: Warm, Dry, Intact, Normal Color, No Rash Course - Vital Signs Text/Narrative:: Dr. Morgan Garcia psychiatry accepted @ [id number] Departure - Departure Disposition: DC/Tfer to Psych Hosp/Unit 65 Condition: Fair Clinical Impression: Acute psychosis - Discharge Information *PRESCRIPTION DRUG MONITORING PROGRAM REVIEWED*: Not Applicable *COPY OF PRESCRIPTION DRUG MONITORING REPORT IN PATIENT ALCIDES: Not Applicable Referrals: PCP,None [Primary Care Provider] - Forms: ED Department Discharge <OfficerNicolas - Last Filed: 04/04/21 20:19> Course - Vital Signs Last Recorded V/S: Last Vital Signs Temp 98.2 F 04/04/21 18:29 Pulse 64 04/04/21 18:29 Resp 14 04/04/21 18:29 BP 101/61 04/04/21 18:29 Pulse Ox 97 04/04/21 18:29 - Orders/Labs/Meds Labs: Laboratory Tests 04/04/21 04/04/21 04/04/21 Range/Units 16:48 16:48 16:48 WBC 8.1 (4.5-11.0) K/uL RBC 4.33 (4.30-5.90) M/uL Hgb 12.8 D (12.0-15.0) g/dL Hct 39.1 L (40.0-54.0) % MCV 90 (80-98) fL MCH 30 (27-31) pg MCHC 33 (32-36) % Plt Count 242 (150-400) K/uL Sodium 143 (140-148) mmol/L Potassium 3.5 L (3.6-5.2) mmol/L Chloride 104 (100-108) mmol/L Carbon Dioxide 28 (21-32) mmol/L Anion Gap 14.5 H (5.0-14.0) mmol/L BUN 14 D (7-18) mg/dL Creatinine 1.2 (0.8-1.3) mg/dL Est Cr Clr Drug Dosing TNP Estimated GFR (MDRD) > 60 (>60) Glucose 192 H (74-106) mg/dL Calcium 8.5 (8.5-10.1) mg/dL Total Bilirubin 0.6 (0.2-1.0) mg/dL AST 22 (15-37) U/L ALT 60 (12-78) U/L Alkaline Phosphatase 82 (46-116) U/L C-Reactive Protein 0.20 (0.0-0.3) mg/dL Total Protein 7.0 (6.4-8.2) g/dL Albumin 3.1 L (3.4-5.0) g/dL Globulin 3.9 H (2.3-3.5) g/dL Albumin/Globulin Ratio 0.8 L (1.2-2.2) Urine Color (YELLOW) Urine Appearance (CLEAR) Urine pH (5.0-8.0) Ur Specific [place] (1.008-1.030) Urine Protein (NEGATIVE) mg/dL Urine Glucose (UA) (NEGATIVE) mg/dL Urine Ketones (NEGATIVE) mg/dL Urine Occult Blood (NEGATIVE) Urine Nitrite (NEGATIVE) Urine Bilirubin (NEGATIVE) Urine Urobilinogen (0.2-1.0) EU/dL Ur Leukocyte Esterase (NEGATIVE) Urine RBC (0-5) Urine WBC (0-5) Ur Epithelial Cells Amorphous Sediment Urine Bacteria Urine Mucus Urine Opiates Screen (NEGATIVE) Ur Oxycodone Screen (NEGATIVE) Urine Methadone Screen (NEGATIVE) Ur Propoxyphene Screen (NEGATIVE) Ur Barbiturates Screen (NEGATIVE) Ur Tricyclics Screen (NEGATIVE) Ur Phencyclidine Scrn (NEGATIVE) Ur Amphetamine Screen (NEGATIVE) U Methamphetamines Scrn (NEGATIVE) Urine MDMA Screen (NEGATIVE) U Benzodiazepines Scrn (NEGATIVE) U Cocaine Metab Screen (NEGATIVE) U Marijuana (THC) Screen (NEGATIVE) Ethyl Alcohol mg/dL 04/04/21 04/04/21 04/04/21 Range/Units 16:48 18:03 18:03 WBC (4.5-11.0) K/uL RBC (4.30-5.90) M/uL Hgb (12.0-15.0) g/dL Hct (40.0-54.0) % MCV (80-98) fL MCH (27-31) pg MCHC (32-36) % Plt Count (150-400) K/uL Sodium (140-148) mmol/L Potassium (3.6-5.2) mmol/L Chloride (100-108) mmol/L Carbon Dioxide (21-32) mmol/L Anion Gap (5.0-14.0) mmol/L BUN (7-18) mg/dL Creatinine (0.8-1.3) mg/dL Est Cr Clr Drug Dosing Estimated GFR (MDRD) (>60) Glucose (74-106) mg/dL Calcium (8.5-10.1) mg/dL Total Bilirubin (0.2-1.0) mg/dL AST (15-37) U/L ALT (12-78) U/L Alkaline Phosphatase (46-116) U/L C-Reactive Protein (0.0-0.3) mg/dL Total Protein (6.4-8.2) g/dL Albumin (3.4-5.0) g/dL Globulin (2.3-3.5) g/dL Albumin/Globulin Ratio (1.2-2.2) Urine Color Yellow (YELLOW) Urine Appearance Clear (CLEAR) Urine pH 6.5 (5.0-8.0) Ur Specific [place] 1.025 (1.008-1.030) Urine Protein 30 H (NEGATIVE) mg/dL Urine Glucose (UA) Negative (NEGATIVE) mg/dL Urine Ketones Trace H (NEGATIVE) mg/dL Urine Occult Blood Negative (NEGATIVE) Urine Nitrite Negative (NEGATIVE) Urine Bilirubin Small H (NEGATIVE) Urine Urobilinogen 0.2 (0.2-1.0) EU/dL Ur Leukocyte Esterase Negative (NEGATIVE) Urine RBC 0-5 (0-5) Urine WBC Not seen (0-5) Ur Epithelial Cells Occasional Amorphous Sediment Few Urine Bacteria Few Urine Mucus Few Urine Opiates Screen Negative (NEGATIVE) Ur Oxycodone Screen Negative (NEGATIVE) Urine Methadone Screen Negative (NEGATIVE) Ur Propoxyphene Screen Negative (NEGATIVE) Ur Barbiturates Screen Negative (NEGATIVE) Ur Tricyclics Screen Negative (NEGATIVE) Ur Phencyclidine Scrn Negative (NEGATIVE) Ur Amphetamine Screen Negative (NEGATIVE) U Methamphetamines Scrn Negative (NEGATIVE) Urine MDMA Screen Negative (NEGATIVE) U Benzodiazepines Scrn Negative (NEGATIVE) U Cocaine Metab Screen Negative (NEGATIVE) U Marijuana (THC) Screen Negative (NEGATIVE) Ethyl Alcohol < 3 mg/dL Departure - Departure Time of Disposition: 20:19 Sepsis Event Note (ED) - Focused Exam Vital Signs: Vital Signs Temp Pulse Resp BP Pulse Ox 04/04/21 18:29 98.2 F 64 14 101/61 97
== END 2021-04-04 20:10 ==
LOC: JP.ED 16:18
DX: F23 Brief psychotic disorder (principal)
CPT/HCPCS: 36415; 80053; 80305-QW; 80307; 81001; 85027; 86140; 99285